=== PATIENT | female | born 1950 | race African-American/Black ===

== ENCOUNTER 2016-04-05 19:53 | Emergency (ER) | payer BC, MEDICARE, OTHER ==
[~2016-04-05] VITALS: Ht 157.5 cm; Wt 94.0 kg
[~2016-04-05 19:53] MED LIST: ADVA250A INH; CLON0.5T PO; COMBAER INH; FLEX10TA PO; LACT PO; LASI20TA PO; LORT5TAB PO; PROT40TA PO; TELM1TAB56 PO; TOPR50TA PO; peri-colace
[2016-04-05 19:56] VITALS: BP 153/81; PULSE 67; RESP 20; TEMP 98; O2SAT 95
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
--- NOTE | 2016-04-05 21:38 | RADRPT ---
EXAM DATE/TIME: 04/05/2016 21:21 [facility] COMPARISON: CHEST SINGLE AP, April 21, 2012, 4:55. INDICATIONS : Right shoulder pain, fell MEDICAL HISTORY : None. SURGICAL HISTORY : None. ENCOUNTER: Initial ACUITY: 1 day PAIN SCORE: 10/10 LOCATION: Left Shoulder FINDINGS: Limited AP and axillary views of the right shoulder were obtained and demonstrate a shoulder dislocat ion. On the AP view the humeral head is displaced medially and is projected over the glenoid. On the axillary view humeral head is projected medial to the glenoid. There is no evidence of fracture. CONCLUSION: Right shoulder dislocation. Jose Berumen MD on April 05, 2016 at 21:34 Board Certified Radiologist. This report was verified electronically.
[2016-04-05] MEDS ORDERED: MORPHINE SULFATE 8 MG/ML INJ IV PUSH ONE (22:00)
[2016-04-05] MEDS ORDERED: PROPOFOL 200 MG/20 ML AMP IV ONE (22:45)
[2016-04-05] MEDS ORDERED: CLINDAMYCIN INJ 600 MG in SODIUM CHLORIDE 0.9% INJ 100 ML IV ONE (23:00)
[2016-04-05] MEDS ORDERED: CLIN1CAP6 PO (23:03)
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
--- NOTE | 2016-04-05 23:27 | RADRPT ---
EXAM DATE/TIME: 04/05/2016 22:51 [facility] COMPARISON: SHOULDER RIGHT LTD (2VWS), April 05, 2016, 21:21. INDICATIONS : Post reduction right shoulder. MEDICAL HISTORY : None. SURGICAL HISTORY : None. ENCOUNTER: Subsequent ACUITY: 1 day PAIN SCORE: 5/10 LOCATION: Right shoulder FINDINGS: Two view examination of the right shoulder demonstrates no evidence of fracture or dislocation. The glenohumeral and acromioclavicular joints are maintained. Bony mineralization is normal. CONCLUSION: Successful reduction to anatomic position. Raul Begum MD on April 05, 2016 at 23:24 Board Certified Radiologist. This report was verified electronically.
== END 2016-04-06 00:18 | disposition home or self-care (01) ==
LOC: NEPB 19:53 → NEPC 04-06 00:18
DX: S43.004A Unspecified dislocation of right shoulder joint, initial encounter (principal); X50.0XXA Overexertion from strenuous movement or load, initial encounter; Y93.F9 Activity, other caregiving; Y92.129 Unspecified place in nursing home as the place of occurrence of the external cause
CPT/HCPCS: 23650; 73030; 96374; 96375; 99152; 99284; J2270

== ENCOUNTER → 2017-08-30 | Outpatient (CLI) | payer MEDICARE, OTHER ==
[~2017-08-30] MED LIST changes: -COMBAER INH; +CYCL10TA PO; +DULA0.5I SQ; -FLEX10TA PO; +GABA100C4 PO; +HYDR25TA5 PO; +IPRAAER INH; +KLOR10TA PO; +L. A1CAP PO; -LACT PO; +LACT10SO PO; -LASI20TA PO; -LORT5TAB PO; +MAGN400T24 PO; +METO50TA PO; +MOBI15TA PO; +MONT10TA2 PO; +OMEGCAP PO; +OXYB5TAB8 PO; +PANT40TA3 PO; +PERC5TAB12 PO; -PROT40TA PO; +TELM1TAB2 PO; -TELM1TAB56 PO; -TOPR50TA PO; +VITA1000 PO; -peri-colace
== END ==
LOC: HRSP 08:46
PROVIDERS: ATTEND Internal Medicine Pulmonary Disease
DX: J45.909 Unspecified asthma, uncomplicated (principal); I10 Essential (primary) hypertension; R06.00 Dyspnea, unspecified
CPT/HCPCS: 94060; 94726; 94729